=== PATIENT | female | born 1980 | race Caucasian/White ===

== ENCOUNTER 2016-10-08 16:18 | Emergency (ER) | payer OTHER ==
[2016-10-08 16:35] LABS: URINE SOURCE CLEAN CATCH
[2016-10-08 17:05] LABS: BILIRUBIN URINE NEGATIVE (NEGATIVE); BLOOD URINE 2+ (NEGATIVE); CLARITY CLEAR (CLEAR); COLOR YELLOW; LEUKOCYTES URINE TRACE (NEGATIVE); NITRITE URINE NEGATIVE (NEGATIVE); PROTEIN URINE NEGATIVE (NEGATIVE); UROBILINOGEN URINE NORMAL
[2016-10-08 17:27] LABS: URINE RBC <10 /HPF (<10); URINE WBC <10 /HPF (<10)
[2016-10-08 17:28] LABS: URINE CAST NONE SEEN /LPF; URINE CRYSTAL NONE SEEN /HPF; URINE CULTURE PL NEEDED? YES; URINE EPITHELIAL CELLS <10 /HPF (<10)
[2016-10-08 17:38] LABS: MANUAL DIFF NEEDED? NO
[2016-10-08 17:40] LABS: BASO% 0.3 % (0.0-0.8); EOS# 0.41 X1000 (0.0-0.7); EOS% 3.9 % (0.0-10.0); HEMATOCRIT 33.7 % (37.0-47.0); IMM GRAN# 0.03 X1000 (0.0-0.04); IMM GRAN% 0.3 % (0.0-0.5); LYMPH# 1.49 X1000 (1.2-3.4); LYMPH% 14.2 % (20.5-51.1); MCH 27.8 PG (27-31); MCHC 32.6 g/dL (33-37); MCV 85.3 FL (81-99); MONO# 0.73 X1000 (0.11-0.59); MPV 9.8 FL (7.4-10.4); NEUT% 74.3 % (42.2-75.2); PLT 310 X1000 (130-400); RBC 3.95 XMIL (4.2-5.4)
[2016-10-08] MEDS ORDERED: ZOFRAN ODT PO ONE (17:55)
[2016-10-08 18:10] LABS: AGAP 11; ALBUMIN 3.9 g/dL (3.5-5.0); ALKALINE PHOSPHATASE 63 U/L (32-104); AMYLASE 50 U/L (20-200); BUN 10 mg/dL (8-22); CALCIUM 8.7 mg/dL (8.8-10.2); CHLORIDE 102 mmol/L (98-107); COSMO 271; GOT 14 U/L (10-30); GPT 13 U/L (10-36); LIPASE 48 U/L (13-60); POTASSIUM 3.3 mmol/L (3.5-5.1); SODIUM 136 mmol/L (136-145); TCO2 23 mmol/L (25-35); TOTAL BILIRUBIN < 0.15 mg/dL (0.20-1.00); TOTAL PROTEIN 6.6 g/dL (6.3-8.3)
--- NOTE | 2016-10-08 18:56 | PROVIDER DOCUMENTATION ---
HPI-Female /OB/Breast - General Chief Complaint: Flank Pain Stated Complaint: ABD PAIN/POSS PREG Time Seen by Provider: 10/08/16 16:36 Source: reports: patient Allergies/Adverse Reactions: Patient Allergies Allergy/AdvReac Type Severity Reaction Status Date / Time cephalexin monohydrate * Allergy ANAPHYLAXIS Verified 08/19/15 10:34 [From Keflex] Tetracyclines Allergy ANAPHYLAXIS Verified 08/19/15 10:34 Home Medications: Home Medication List Medication Instructions Recorded Confirmed Last Taken Type Ibuprofen 800 mg PO PRN PRN 08/19/15 08/19/15 08/19/15 05:00 History Oxycodone HCl/Acetaminophen 1 each PO PRN PRN 08/19/15 08/19/15 08/18/15 History [Percocet 10-325 mg Tablet] Nitrofurantoin [place]/Macrocryst 100 mg PO BID #14 capsule 10/08/16 Unknown Rx [Macrobid] Ondansetron [Zofran] 4 mg PO Q6H PRN PRN #15 tablet 10/08/16 Unknown Rx - History of Present Illness-Female /OB Nature of Presenting Problem: 36 yo female presents to ER with c/o decreased urinary output, no period since 08/27/2016, nausea, suprapubic pain. Denies flank pain. She is not sure if she is . Does patient report she is ?: (unknown) Location of complaint: reports: suprapubic Radiation: reports: none Quality of Pain: reports: pressure Severity in ED: reports: mild Onset/Duration: reports: this morning Timing: reports: still present Context/Activities at Onset: reports: none Vaginal Symptoms: reports: no symptoms Vaginal Bleeding Amount: None Urinary Symptoms: reports: anuria Sexual intercourse history: reports: Single Partner Contraception: reports: none Modifying Factors: improves with: nothing Associated Symptoms: reports: nausea Review of Systems - Adult - REVIEW OF SYSTEMS - ADULT Constitutional: reports: no symptoms reported Eyes: reports: no symptoms reported Ears, Nose, Mouth & Throat: reports: no symptoms reported Cardiovascular: reports: no symptoms reported Respiratory: reports: no symptoms reported Gastrointestinal: reports: see HPI Genitourinary: reports: see HPI Musculoskeletal: reports: no symptoms reported Integumentary: reports: no symptoms reported Neurological: reports: no symptoms reported Psychiatric: reports: no symptoms reported Endocrine: reports: no symptoms reported Hematologic/Lymphatic: reports: no symptoms reported Allergic/Immunologic: reports: no symptoms reported All Other Systems: Reviewed and Negative Past History - Adult - PAST MEDICAL HISTORY-ADULT Review of Records: reports: Old Records Reviewed, Nursing Assessment Review, Medications Reviewed, Social history reviewed & non-contributory. Major Childhood Illnesses: reports: denies history Cardiovascular: reports: denies history Respiratory: reports: denies history Gastrointestinal: reports: denies history Obstetrical/Gynecological: reports: denies history Genitourinary: reports: denies history Musculoskeletal: reports: denies history Neurological: reports: denies history Endocrine/Immune: reports: denies history Other Conditions: reports: denies history - PRIOR SURGERIES/PROCEDURES Surgical/Procedure History: reports: BTL, other (tubal reconstruction) - FAMILY HISTORY Family History: reviewed, not pertinent - SOCIAL HISTORY Smoking: denies, non-smoker Substance Use: none/never, denies Alcohol Use Frequency: never Living Situation: family Physical Exam-General - PHYSICAL EXAM-ADULT Initial Vital Signs Reviewed: Yes - CONSTITUTIONAL General Appearance: appears well, alert, no apparent distress - EYES Eyes: PERRL/EOMI, pink conjunctivae - HEAD, EARS, NOSE, MOUTH & THROAT HENMT: normocephalic/atraumatic - RESPIRATORY Respiratory: lungs clear, normal breath sounds, no respiratory distress - CARDIOVASCULAR Cardiovascular: normal peripheral pulses - GASTROINTESTINAL (ABDOMEN) Abdominal Exam: normal bowel sounds, soft, tenderness (suprapubic area and mild to LUQ) - MUSCULOSKELETAL Back Exam: normal inspection, no CVA tenderness, no vertebral tenderness Extremity: non-tender, normal gait, normal inspection, no pedal edema - SKIN Integumentary: normal color, normal turgor, warm/dry - NEUROLOGIC Neurologic: grossly normal - PSYCHIATRIC Psych/Mental Status: normal mood/affect, normal thought content, normal thought process, oriented x 3 Progress - PLAN OF CARE/RESULTS Progress/Plan/Lab Results: 1850-Discussed results/dx/tx/discharge and follow up instructions with patient and family; they verbalized understanding. Laboratory Tests 10/08/16 10/08/16 10/08/16 16:26 16:26 17:20 WBC RBC Hgb Hct MCV MCH MCHC RDW Std Deviation Plt Count MPV Immature Gran % (Auto) Neut % (Auto) Lymph % (Auto) [place] % (Auto) Eos % (Auto) Baso % (Auto) Immature Gran # (Auto) Neut # (Auto) Lymph # (Auto) [place] # (Auto) Eos # (Auto) Baso # (Auto) Sodium 136 Potassium 3.3 L Chloride 102 Carbon Dioxide 23 L Anion Gap 11 BUN 10 Creatinine 0.5 Estimated GFR/1.73 m2 > 60 BUN/Creatinine Ratio 20 Glucose 104 Calculated Osmolality 271 Calcium 8.7 L Total Bilirubin < 0.15 L AST 14 ALT 13 Alkaline Phosphatase 63 Total Protein 6.6 Albumin 3.9 Globulin 3.0 Albumin/Globulin Ratio 1.0 Amylase 50 Lipase 48 Ser , Semi-Qnt Urine Source CLEAN CATCH Urine Color YELLOW Urine Clarity CLEAR Urine pH 7.0 Ur Specific [place] 1.010 Urine Protein NEGATIVE Urine Ketones NEGATIVE Urine Blood 2+ A Urine Nitrite NEGATIVE Urine Bilirubin NEGATIVE Urine Urobilinogen NORMAL Urine Microscopic RBC <10 Urine WBC TRACE A Urine Microscopic WBC <10 Ur Epithelial Cells <10 Urine Crystals NONE SEEN Urine Bacteria 1+ Urine Casts NONE SEEN Urine Yeast NONE SEEN Urine Glucose TRACE(50 mg/dL) A Urine Test POSITIVE 10/08/16 10/08/16 17:20 17:20 WBC 10.49 RBC 3.95 L Hgb 11.0 L Hct 33.7 L MCV 85.3 MCH 27.8 MCHC 32.6 L RDW Std Deviation 14.7 H Plt Count 310 MPV 9.8 Immature Gran % (Auto) 0.3 Neut % (Auto) 74.3 Lymph % (Auto) 14.2 L [place] % (Auto) 7.0 Eos % (Auto) 3.9 Baso % (Auto) 0.3 Immature Gran # (Auto) 0.03 Neut # (Auto) 7.80 H Lymph # (Auto) 1.49 [place] # (Auto) 0.73 H Eos # (Auto) 0.41 Baso # (Auto) 0.03 Sodium Potassium Chloride Carbon Dioxide Anion Gap BUN Creatinine Estimated GFR/1.73 m2 BUN/Creatinine Ratio Glucose Calculated Osmolality Calcium Total Bilirubin AST ALT Alkaline Phosphatase Total Protein Albumin Globulin Albumin/Globulin Ratio Amylase Lipase Ser , Semi-Qnt 97499.0 Urine Source Urine Color Urine Clarity Urine pH Ur Specific [place] Urine Protein Urine Ketones Urine Blood Urine Nitrite Urine Bilirubin Urine Urobilinogen Urine Microscopic RBC Urine WBC Urine Microscopic WBC Ur Epithelial Cells Urine Crystals Urine Bacteria Urine Casts Urine Yeast Urine Glucose Urine Test Orders Category Date Time Status AMYLASE [CHEM] Stat Lab 10/08/16 17:20 Completed CBC WITH ELECTRONIC DIFF [HEME] Stat Lab 10/08/16 17:20 Completed COMPREHENSIVE METABOLIC PANEL [CHEM] Stat Lab 10/08/16 17:20 Completed LIPASE [CHEM] Stat Lab 10/08/16 17:20 Completed TEST-URINE [PREG] Stat Lab 10/08/16 16:26 Completed QUANT TEST Stat Lab 10/08/16 17:[address] W/POSS RFLX CULT [URINALYSIS] Stat Lab 10/08/16 16:26 Completed URINE CULTURE [RM] Routine Lab 10/08/16 17:28 Ordered Ondansetron Odt [Zofran Odt] Med 10/08/16 17:55 Discontinued 4 mg PO NOW ONE Vital Signs - 24 hr 10/08/16 10/08/16 16:21 19:03 Temperature 99.1 F 98.9 F Pulse Rate 101 H 95 H Respiratory 18 16 Rate Blood Pressure 134/71 134/80 O2 Sat by Pulse 100 98 Oximetry Departure - Departure Time of Disposition Order: 18:56 DIAGNOSIS: Nausea, Cystitis Qualifiers: Weeks of gestation: less than 8 weeks Qualified Code(s): Z3A.01 - Less than 8 weeks gestation of Disposition: HOME 01 Certified Medical Emergency: Emergent Condition: Good Additional Instructions: Follow up with ob-full stack net developer. Take medications as prescribed. Take an over the counter vitamin. Stay well hydrated. ED Follow Up Instructions: You have been treated by a care provider in the Emergency Department. These instructions are being provided to you so you can have an understanding of how to care for yourself upon discharge. Upon discharge from the Emergency Department, you are responsible for making arrangements for follow-up care by a physician of your choice. Take all prescribed medications as directed. Return to the Emergency Department immediately for any new or worsening symptoms. You may call the Physician Referral phone number at [phone] to obtain a list of Physicians who are taking new patients. Prescriptions: Nitrofurantoin [place]/Macrocryst [Macrobid] 100 mg PO BID #14 capsule Ondansetron [Zofran] 4 mg PO Q6H PRN PRN #15 tablet PRN Reason: Nausea Referrals: Nathaniel Brito MD [Primary Care Provider] - David Ocasio MD [STAFF PHYSICIAN] - Instructions: Nitrofurantoin tablets or capsules, Ondansetron tablets, First Trimester of , [id number], Nausea, Adult, [id number] Attestation - Physician/ ELODIA Attestation Patient care was provided by Advanced Practice Provider:: [facility] Provider:: Jayleen Dejesus Advanced Practice Provider documentation review:: The Mid-level provider documentation, treatment plan and medical decision making was reviewed by the physician who agrees with all treatment and medical decision making by the MLP.
[2016-10-08 19:03] VITALS: BP 134/80
== END 2016-10-08 19:03 | disposition home or self-care (01) ==
LOC: P.ED 16:18
DX: O23.11 Infections of bladder in pregnancy, first trimester (principal); N30.90 Cystitis, unspecified without hematuria; O26.891 Other specified pregnancy related conditions, first trimester; R11.0 Nausea; R10.9 Unspecified abdominal pain; R34 Anuria and oliguria; R10.819 Abdominal tenderness, unspecified site; R10.812 Left upper quadrant abdominal tenderness; Z3A.01 Less than 8 weeks gestation of pregnancy
CPT/HCPCS: 80053; 81001; 81025; 82150; 83690; 84702; 85025; 87088; 99283